=== PATIENT | male | born 1995 | race Caucasian/White ===

== ENCOUNTER → 2020-02-28 | Outpatient (CLI) | payer OTHER ==
[~2020-02-28] MED LIST: Naprosyn500 MG PO; Percocet 5-3251 EACH PO
== END | disposition home or self-care (01) ==
LOC: LAB SHORT 15:06 → LAB EV 15:06
DX: B34.9 Viral infection, unspecified (principal); Z20.828 Contact with and (suspected) exposure to other viral communicable diseases
CPT/HCPCS: U0003

== ENCOUNTER 2025-03-26 10:48 | Inpatient (IN) | payer OTHER ==
[~2025-03-26] VITALS: Ht 193 cm; Wt 205.0 kg
[~2025-03-26 10:48] MED LIST changes: -DOXY100 PO
[2025-03-26] MEDS ORDERED: Clindamycin 900mg in D5W 50ML 50 ML IV ONE (11:10)
[2025-03-26] MEDS ORDERED: Vancomycin (Pharmacy Consult) IV PRN (11:15)
[2025-03-26] MEDS ORDERED: Vancomycin HCL 2,500 MG in NS 500 ML IV ONE (11:40)
[2025-03-26] MEDS ORDERED: FLU VACC TS2025-26(6MOS UP)/PF 45 MCG/0.5 ML SYRINGE IM SCH (12:35)
[2025-03-26] MEDS ORDERED: Vancomycin (Pharmacy Consult) IV SCH (12:35)
[2025-03-26 14:34] VITALS: BP 107/78
--- NOTE | 2025-03-26 15:18 | NUR ---
Patient arrived to room 339 from ER at 1405. Patient ambulating independently to bed. Denies SOB, CP or pressure, N/V/D or pain at this time. Abscess to right buttock leaking and wound care/pictures completed. Patient resting comfortably at this time. Call to Dr. Vargas's office at 1430 with consult referral.
[2025-03-26 16:51] VITALS: BP 187/67
[2025-03-26 19:35] VITALS: BP 113/47
[2025-03-26] MEDS ORDERED: Lactobacil 2-S.Thermo-Bifido 1 1 Cap PO SCH (21:00)
--- NOTE | 2025-03-27 05:13 | NUR ---
SHIFT SUMMARY PATIENT ADMITTED FOR ABSCESS GLUTEAL RIGHT. PATIENT HAD SOME BLEEDING COMING FROM THE ABSCESS AREA. BANDAGE WAS CHANGED AND ABD PAD WAS PLACED OVER DUE TO DRAINAGE. INDEPENDENT IN ROOM. BED RAILS UP X2. BED IN LOWEST POSITION FOR SAFETY. CALL LIGHT WITHIN REACH.
[2025-03-27 05:32] LABS: BASOPHILS ABSOLUTE AUTO 0.07 K/mm3 (0.00-0.23); BASOPHILS PERCENT AUTO 0 % (0-2); EOSINOPHILS ABSOLUTE AUTO 0.28 K/mm3 (0.00-0.68); EOSINOPHILS PERCENT AUTO 1 % (0-6); Hematocrit 38.0 % (37.0-53.0); Hemoglobin 13.4 g/dL (13.5-17.5); IMMATURE GRAN ABSOLUTE AUTO 0.17 K/mm3 (0.00-0.10); IMMATURE GRAN PERCENT AUTO 1 % (0-1); LYMPHOCYTES ABSOLUTE AUTO 2.15 K/mm3 (0.84-5.20); LYMPHOCYTES PERCENT AUTO 9 % (21-46); MONOCYTES ABSOLUTE AUTO 2.77 K/mm3 (0.16-1.47); MONOCYTES PERCENT AUTO 12 % (4-13); Mean Corpuscular HGB Conc 35.3 g/dL (31.5-36.5); Mean Corpuscular Volume 86 fL (80-100); NEUTROPHILS ABSOLUTE AUTO 17.69 K/mm3 (1.96-9.15); NEUTROPHILS PERCENT AUTO 77 % (41-73); NRBC ABSOLUTE 0.00 K/mm3 (0.00-0.02); NRBC Auto 0.0 /100 WBC (0.0-0.2); Platelet Count 239 K/mm3 (150-400); RDW Coefficient Variation 12.9 % (11.7-14.2); RDW Standard Deviation 40.0 fL (35.1-46.3)
[2025-03-27 06:09] VITALS: BP 146/63
[2025-03-27 06:15] LABS: Alanine Aminotransfer (ALT/SGP 36.0 U/L (12-78); Albumin, Blood 2.7 g/dL (3.4-5.0); Albumin/Globulin Ratio 0.6 (0.8-1.8); Anion Gap 11.0 mmol/L (3-11); Aspartate Aminotrans (AST/SGOT 12.0 U/L (12-37); Bilirubin, Total 1.0 mg/dL (0.1-1.0); Blood Urea Nitrogen 9.0 mg/dL (8-24); CO2, Blood 22.0 mmol/L (21-32); Calcium, Blood 8.4 mg/dL (8.5-10.1); Chloride, Blood 104.0 mmol/L (98-108); Creatinine, Blood 0.79 mg/dL (0.60-1.20); Globulin, Blood 4.2 g/dL (2.2-4.0); Glucose, Blood 118.0 mg/dL (70-99); Potassium, Blood 3.4 mmol/L (3.5-5.5); Sodium, Blood 134.0 mmol/L (136-145); Total Protein, Blood 6.9 g/dL (6.4-8.2)
[2025-03-27 07:43] VITALS: BP 169/68
[2025-03-27] MEDS ORDERED: Potassium Chl 10MEQ/Water100ML 100 ML IV ONE (08:30)
[2025-03-27 08:42] LABS: Magnesium, Blood 2.0 mg/dL (1.6-2.4); Phosphorus, Blood 3.1 mg/dL (2.5-4.9)
[2025-03-27] MEDS ORDERED: Enoxaparin 40 MG/0.4 ML SYR SC SCH (09:00)
[2025-03-27] MEDS ORDERED: NS 250 ML IV PRN (10:05)
[2025-03-27] MEDS ORDERED: Potassium Chloride 10 Meq Tablet SA PO ONE (12:30)
[2025-03-27 15:28] VITALS: BP 173/75
[2025-03-27] MEDS ORDERED: HydrALAZINE HCl 20 MG / ML 1ML Vial IV PRN (16:10)
[2025-03-27 16:21] VITALS: BP 179/68
[2025-03-27 17:54] VITALS: BP 162/81
--- NOTE | 2025-03-27 18:40 | NUR ---
SHIFT SUMMARY PT A&OX4. PT ADMITTED DUE TO ABSCESS GLUTEAL R. PT INDEPENDENT IN ROOM. PT REPORTS NO SOB, NO CHEST PAIN. PT REPORTS KRISHNA PAIN. PAIN MANAGED PER EMAR. PT EATS ADEQUATE. PT CONT OF URINE. PT ON ROOM AIR. PT BLOOD PRESSURE SYSTOLIC BP INCREASING IN TRENDS. AT 1621 BP WAS 179/68. THIS RN NOTIFIED DR. TEJADA. DR. TEJADA ORDERED HYDRALAZINE IV 10MG FOR SBP OF GREATER THAN 160. AN HOUR AFTER ADMINISTRATION BP WAS 162/81. MRSA SWAB COLLECTED FROM DRAINAGE FROM WOUND. AWAITING RESULTS. PT REMAINS IN CONTACT PRECAUTION FOR POSSIBLE MRSA. DR. DURAN ROUNDED, REPORTED "NO SURGERY." GAVE VERBAL WOUND CARE ORDERS. PT GOT PO POTASSIUM TODAY. DR. TEJADA SAID IF PT IS DRINKING ADEQUATE NO NEED FOR CONT FLUIDS. PT DRINKING ADEQUATE. DR. DURAN ORDERED WOUND CARE DAILY AND NEEDED. THIS RN COMPLETED WOUND CARE NEEDED. PT HAS DRAINAGE AT WOUND SITE. THIS RN USED 4X4 GAUZE AND WOUND CARE SPRAY TO CLEANSE WOUND AND APPLIED ABD PAD W TAPE. PT GETTING IV ANTIBIOTICS. PT IN BED. BED IN LOWEST POSITION, LOCKED, CALL LIGHT IN REACH.
[2025-03-27 20:05] VITALS: BP 152/73
[2025-03-28 02:58] VITALS: BP 141/66
--- NOTE | 2025-03-28 05:30 | NUR ---
SHIFT SUMMARY PATIENT ADMITTED FOR ABCESS GLUTEAL RIGHT. ALERT AND ORIENTED X4. VSS. DRESSING CHANGED SEVERAL TIMES DUE TO DRAINAGE. NO ACUTE OVERNIGHT EVENTS. BED RAILS UP X2. BED IN LOWEST POSITION FOR SAFETY. CALL LIGHT WITHIN REACH.
[2025-03-28 08:04] VITALS: BP 144/87
[2025-03-28 08:15] LABS: BASOPHILS ABSOLUTE AUTO 0.08 K/mm3 (0.00-0.23); BASOPHILS PERCENT AUTO 1 % (0-2); EOSINOPHILS ABSOLUTE AUTO 0.60 K/mm3 (0.00-0.68); EOSINOPHILS PERCENT AUTO 4 % (0-6); Hematocrit 38.4 % (37.0-53.0); Hemoglobin 13.7 g/dL (13.5-17.5); IMMATURE GRAN ABSOLUTE AUTO 0.17 K/mm3 (0.00-0.10); IMMATURE GRAN PERCENT AUTO 1 % (0-1); LYMPHOCYTES ABSOLUTE AUTO 2.77 K/mm3 (0.84-5.20); LYMPHOCYTES PERCENT AUTO 17 % (21-46); MONOCYTES ABSOLUTE AUTO 1.88 K/mm3 (0.16-1.47); MONOCYTES PERCENT AUTO 12 % (4-13); Mean Corpuscular HGB Conc 35.7 g/dL (31.5-36.5); Mean Corpuscular Volume 85 fL (80-100); NEUTROPHILS ABSOLUTE AUTO 10.55 K/mm3 (1.96-9.15); NEUTROPHILS PERCENT AUTO 66 % (41-73); NRBC ABSOLUTE 0.00 K/mm3 (0.00-0.02); NRBC Auto 0.0 /100 WBC (0.0-0.2); Platelet Count 259 K/mm3 (150-400); RDW Coefficient Variation 13.0 % (11.7-14.2); RDW Standard Deviation 39.9 fL (35.1-46.3)
[2025-03-28 08:57] LABS: Anion Gap 6.0 mmol/L (3-11); Blood Urea Nitrogen 8.0 mg/dL (8-24); CO2, Blood 26.0 mmol/L (21-32); Calcium, Blood 8.3 mg/dL (8.5-10.1); Chloride, Blood 106.0 mmol/L (98-108); Creatinine, Blood 0.74 mg/dL (0.60-1.20); Glucose, Blood 114.0 mg/dL (70-99); Potassium, Blood 3.3 mmol/L (3.5-5.5); Sodium, Blood 135.0 mmol/L (136-145)
[2025-03-28 09:10] LABS: Vancomycin, Trough 15.8 ug/mL (5.0-10.0)
[2025-03-28] MEDS ORDERED: Vancomycin HCL 2,500 MG in NS 500 ML IV SCH ×2 (10:00→20:00)
[2025-03-28 15:50] VITALS: BP 153/70
--- NOTE | 2025-03-28 17:21 | NUR ---
SHIFT SUMMARY PT A&OX4. PT ADMITTED DUE TO ABSCESS R GLUTEAL PT REPORTS MINIMAL PAIN, DECLINED PAIN MEDS. PT REPORTS NO NAUSEA, NO CHEST PAIN, NO SOB. PT EATS ADEQUATE. PT CONT OF URINE. PT INDENDENT IN ROOM. PT GETTING IV VANCO. PT VSS. PT ON ROOM AIR. AWAITING MRSA CULTURES OF WOUND. THIS RN COMPLETED WOUND CARE PRN. PT HAS PURALENT DRAINAGE AT 2 WOUND SITES. BOTH ON BUTTOX. THIS RN USED 4X4 GAUZE AND WOUND CARE SPRAY TO CLEANSE WOUND AND APPLIED ABLE PAD W TAPE TO R GLUTEAL L SIDE THIS RN USED 4X4 GAUZE AND WOUND CARE SPRAY TO CLEANSE WOUND AND APPLIED MEPILEX. PT REPORTS NO BM, WILL COME SOON. PASSING GAS. PT IN BED, BED IN LOWEST POSITION, CALL LIGHT IN REACH.
[2025-03-28 20:28] VITALS: BP 148/81
[2025-03-29 05:01] VITALS: BP 147/99
[2025-03-29 05:33] LABS: BASOPHILS ABSOLUTE AUTO 0.12 K/mm3 (0.00-0.23); BASOPHILS PERCENT AUTO 1 % (0-2); EOSINOPHILS ABSOLUTE AUTO 0.70 K/mm3 (0.00-0.68); EOSINOPHILS PERCENT AUTO 5 % (0-6); Hematocrit 39.4 % (37.0-53.0); Hemoglobin 14.0 g/dL (13.5-17.5); IMMATURE GRAN ABSOLUTE AUTO 0.38 K/mm3 (0.00-0.10); IMMATURE GRAN PERCENT AUTO 3 % (0-1); LYMPHOCYTES ABSOLUTE AUTO 3.25 K/mm3 (0.84-5.20); LYMPHOCYTES PERCENT AUTO 23 % (21-46); MONOCYTES ABSOLUTE AUTO 1.62 K/mm3 (0.16-1.47); MONOCYTES PERCENT AUTO 12 % (4-13); Mean Corpuscular HGB Conc 35.5 g/dL (31.5-36.5); Mean Corpuscular Volume 87 fL (80-100); NEUTROPHILS ABSOLUTE AUTO 8.01 K/mm3 (1.96-9.15); NEUTROPHILS PERCENT AUTO 57 % (41-73); NRBC ABSOLUTE 0.00 K/mm3 (0.00-0.02); NRBC Auto 0.0 /100 WBC (0.0-0.2); Platelet Count 303 K/mm3 (150-400); RDW Coefficient Variation 13.0 % (11.7-14.2); RDW Standard Deviation 40.9 fL (35.1-46.3)
[2025-03-29 06:02] LABS: Anion Gap 10.0 mmol/L (3-11); Blood Urea Nitrogen 12.0 mg/dL (8-24); CO2, Blood 24.0 mmol/L (21-32); Calcium, Blood 8.4 mg/dL (8.5-10.1); Chloride, Blood 107.0 mmol/L (98-108); Creatinine, Blood 0.72 mg/dL (0.60-1.20); Glucose, Blood 113.0 mg/dL (70-99); Potassium, Blood 3.8 mmol/L (3.5-5.5); Sodium, Blood 137.0 mmol/L (136-145)
--- NOTE | 2025-03-29 06:05 | NUR ---
SHIFT SUMMARY CONTINUED IV VANCOMYCIN IN NEW LFA IV. SIGNIFICANTLY IMPROVING WOUNDS TO R BUTTOCK, MID LOW BACK, AND L POSTERIOR PROXIMAL THIGH. WOUND CARE DAILY AND PRN, x3 DRESSING CHANGES THIS EVENING DUE TO SATURATED BANDAGES. WOUND CLEANSER USED, THEN DRESSED WITH WITH XEROFORM, GAUZE, AND MEPILEX. DOES REQUIRE GENEROUS SKIN PREP FOR BANDAGE ADHERENCE. REMAINS AFEBRILE, AMBULATORY, A&OX4, INDEPENDENT IN ROOM. SHOWERED THIS EVENING. DOES HAVE RELUCTANCE TO ASK FOR HELP, BUT DOES HAVE 2 PERSONS AT HOME TO HELP WITH WOUND CARE UPON DISPOSITION. DOWNTRENDING WBC COUNT. TOLERATING REGULAR DIET WELL, THOUGH HAS NOT PASSED BM IN 4 DAYS.
[2025-03-29 07:37] VITALS: BP 120/46
[2025-03-29 09:00] VITALS: BP 150/63
[2025-03-29] MEDS ORDERED: CeFAZolin Sodium 2,000 MG in NS 100 ML IV SCH (12:00)
[2025-03-29] MEDS ORDERED: DOXY100 PO ×2 (14:47)
== END 2025-03-29 16:00 | disposition home health service (06) | DRG 872 ==
LOC: ER 10:48 → MEDS 12:31 → ENPENDDIS 03-29 13:40 → MEDS 03-29 16:00
PROVIDERS: ADMIT Family Medicine
DX: A41.01 Sepsis due to Methicillin susceptible Staphylococcus aureus (principal); L02.31 Cutaneous abscess of buttock; Z68.43 Body mass index [BMI] 50.0-59.9, adult; L03.317 Cellulitis of buttock; Z88.0 Allergy status to penicillin; Z88.8 Allergy status to other drugs, medicaments and biological substances; E66.813 Obesity, class 3
CPT/HCPCS: 36415; 74177; 80048; 80053; 80202; 83605; 83735; 84100; 85025; 87040; 87070; 87075; 87077; 87147; 87186; 87205; 96365-59; 99284-25; A9270; J0360; J0690; J1650; J3373; J7040; J7050; Q9967

== ENCOUNTER → 2025-03-26 | Outpatient (CLI) | payer OTHER ==
[~2025-03-26] MED LIST changes: +DOXY100 PO
[2025-03-26 09:59] LABS: BASOPHILS ABSOLUTE AUTO 0.09 K/mm3 (0.00-0.23); BASOPHILS PERCENT AUTO 0 % (0-2); EOSINOPHILS ABSOLUTE AUTO 0.16 K/mm3 (0.00-0.68); EOSINOPHILS PERCENT AUTO 1 % (0-6); Hematocrit 43.2 % (37.0-53.0); Hemoglobin 15.4 g/dL (13.5-17.5); IMMATURE GRAN ABSOLUTE AUTO 0.29 K/mm3 (0.00-0.10); IMMATURE GRAN PERCENT AUTO 1 % (0-1); LYMPHOCYTES ABSOLUTE AUTO 1.88 K/mm3 (0.84-5.20); LYMPHOCYTES PERCENT AUTO 7 % (21-46); MONOCYTES ABSOLUTE AUTO 3.40 K/mm3 (0.16-1.47); MONOCYTES PERCENT AUTO 12 % (4-13); Mean Corpuscular HGB Conc 35.6 g/dL (31.5-36.5); Mean Corpuscular Volume 86 fL (80-100); NEUTROPHILS ABSOLUTE AUTO 22.01 K/mm3 (1.96-9.15); NEUTROPHILS PERCENT AUTO 79 % (41-73); NRBC ABSOLUTE 0.00 K/mm3 (0.00-0.02); NRBC Auto 0.0 /100 WBC (0.0-0.2); Platelet Count 273 K/mm3 (150-400); RDW Coefficient Variation 13.1 % (11.7-14.2); RDW Standard Deviation 40.4 fL (35.1-46.3)
[2025-03-26 10:24] LABS: BAND PERCENT MAN 8 % (0-8); BASOPHILS ABSOLUTE MAN 0.00 K/mm3 (0.00-0.23); BASOPHILS PERCENT MAN 0 % (0-2); EOSINOPHILS ABSOLUTE MAN 0.00 K/mm3 (0.00-0.68); EOSINOPHILS PERCENT MAN 0 % (0-6); LYMPHOCYTES ABSOLUTE MAN 2.22 K/mm3 (0.84-5.20); LYMPHOCYTES PERCENT MAN 8 % (21-46); MONOCYTES ABSOLUTE MAN 3.33 K/mm3 (0.16-1.47); MONOCYTES PERCENT MAN 12 % (4-13); NEUTROPHILS ABSOLUTE MAN 22.26 K/mm3 (1.96-9.15); SEG NEUTROPHILS PERCENT MAN 72 % (41-73)
[2025-03-26 11:26] LABS: Alanine Aminotransfer (ALT/SGP 52.0 U/L (12-78); Albumin, Blood 3.6 g/dL (3.4-5.0); Albumin/Globulin Ratio 0.8 (0.8-1.8); Anion Gap 16.0 mmol/L (3-11); Aspartate Aminotrans (AST/SGOT 30.0 U/L (12-37); Bilirubin, Total 1.2 mg/dL (0.1-1.0); Blood Urea Nitrogen 11.0 mg/dL (8-24); CO2, Blood 22.0 mmol/L (21-32); Calcium, Blood 8.8 mg/dL (8.5-10.1); Chloride, Blood 103.0 mmol/L (98-108); Creatinine, Blood 1.07 mg/dL (0.60-1.20); Globulin, Blood 4.3 g/dL (2.2-4.0); Glucose, Blood 136.0 mg/dL (70-99); Potassium, Blood 4.0 mmol/L (3.5-5.5); Sodium, Blood 137.0 mmol/L (136-145); Total Protein, Blood 7.9 g/dL (6.4-8.2)
== END | disposition home or self-care (01) ==
LOC: LAB 09:52 → LAB SHORT 09:52
DX: R50.9 Fever, unspecified (principal)
CPT/HCPCS: 80053; 85025